=== PATIENT | male | born 1935 | race Caucasian/White ===

== ENCOUNTER 2022-01-16 10:48 | Inpatient (IN) ==
[2022-01-16] MEDS ORDERED: Naloxone 0.4 MG/ML INJ IVP PRN (13:50)
[2022-01-16] MEDS ORDERED: Ondansetron 4 MG/2 ML VIAL IVP PRN (13:50)
[2022-01-16] MEDS ORDERED: *HR* Heparin 5,000 UNIT/ML VIAL SQ SCH (14:00)
[2022-01-16] MEDS: 0.9 % Sodium Chloride 1,000 ML IVC SCH (14:48)
[2022-01-16] MEDS ORDERED: *HR* Heparin 5,000 UNIT/ML VIAL IVP ONE (15:57)
[2022-01-16] MEDS ORDERED: *HR* Heparin 5,000 UNIT/ML VIAL IVP PRN ×2 (15:57)
[2022-01-16 16:13] LABS: Hematocrit 48.1 % (37.5-50.1); Hemoglobin 16.1 g/dL (12.9-16.9); Mean Corpuscular HGB Conc 33.5 g/dL (31.6-35.5); Mean Corpuscular Hemoglobin 29.5 pg (28.0-33.3); Mean Corpuscular Volume 88.3 fL (83.0-100.0); Mean Platelet Volume 8.4 fL (9.4-12.4); Platelet Count 143 K/mcL (140-400); Red Blood Count 5.45 M/mcL (4.19-5.50); Red Cell Distribution Width 12.6 % (11.5-14.5); White Blood Count 11.5 K/mcL (4.3-11.1)
[2022-01-16] MEDS: Heparin 25,000UNIT/250ML 1/2NS 25,000 UNIT/250 ML IV.SOLN IVC SCH (16:30)
[2022-01-16 23:20] LABS: Heparin anti-factor XA UFH 0.68 IU/mL (0.30-0.70); INR 1.4; Prothrombin Time 15.1 Seconds (9.4-12.1)
[2022-01-16 23:47] LABS: Bacteria,Urine Few per hpf (None-Few); Bilirubin,Urine Negative (Negative); Blood,Urine Negative (Negative); Clarity,Urine Turbid (Clear); Color,Urine Yellow (Yellow); Glucose,Urine (UA) Normal (Normal); Ketones,Urine 20 mg/dL (Negative); Leukocyte Esterase,Urine Trace (Negative); Mucus,Urine Few per lpf (None-Few); Nitrite,Urine Positive (Negative); PH,Urine 5.5 pH Units (5.0-8.0); Protein,Urine 30 mg/dL (Neg-Trace); Specific Gravity,Urine 1.027 (1.010-1.025); Squamous Epithelial Cell,Urine Few per hpf (None-Few); Urobilinogen,Urine Normal (Normal)
[2022-01-17] MEDS: 0.9 % Sodium Chloride 1,000 ML IVC SCH (04:09)
[2022-01-17 05:30] LABS: Basophils % 0.5 %; Eosinophils # 0.1 K/mcL (0.0-0.6); Eosinophils % 0.9 %; Hematocrit 40.4 % (37.5-50.1); Immature Granulocytes % 0.3 % (0-4); Lymphocytes % 11.6 %; Mean Corpuscular HGB Conc 34.4 g/dL (31.6-35.5); Mean Corpuscular Hemoglobin 29.7 pg (28.0-33.3); Mean Corpuscular Volume 86.3 fL (83.0-100.0); Mean Platelet Volume 8.7 fL (9.4-12.4); Monocytes # 0.5 K/mcL (0.0-1.3); Monocytes % 5.9 %; Neutrophils # 7.1 K/mcL (1.6-8.9); Platelet Count 138 K/mcL (140-400); Red Blood Count 4.68 M/mcL (4.19-5.50); Red Cell Distribution Width 12.6 % (11.5-14.5); Segmented Neutrophils % 80.8 %; White Blood Count 8.8 K/mcL (4.3-11.1)
[2022-01-17 05:33] LABS: Hemoglobin 13.9 g/dL (12.9-16.9)
[2022-01-17 05:48] LABS: Calcium 8.3 mg/dL (8.6-10.3); Magnesium 1.8 mg/dL (1.6-2.6); Phosphorous 2.8 mg/dL (2.7-4.5); Potassium 3.9 mEq/L (3.5-5.1)
[2022-01-17] MEDS: Carbidopa/Levodopa 25/100 TABLET PO SCH ×2 (14:23→20:08)
[2022-01-17] MEDS: levETIRAcetam 250 MG TABLET PO SCH (16:43)
[2022-01-17] MEDS: Heparin 25,000UNIT/250ML 1/2NS 25,000 UNIT/250 ML IV.SOLN IVC SCH (16:44)
[2022-01-17] MEDS: Latanoprost 2.5 ML BOTTLE LEFT EYE SCH (20:08)
[2022-01-18] MEDS ORDERED: *HR* HYDROmorphone (PF) 1 MG/ML SYRINGE IVP ONE (00:15)
[2022-01-18] MEDS: levETIRAcetam 250 MG TABLET PO SCH ×3 (05:22→17:22)
[2022-01-18] MEDS: Carbidopa/Levodopa 25/100 TABLET PO SCH ×3 (08:43→21:12)
[2022-01-18] MEDS: Cyanocobalamin (B-12) 1,000 MCG TABLET PO SCH (08:43)
[2022-01-18] MEDS: Heparin 25,000UNIT/250ML 1/2NS 25,000 UNIT/250 ML IV.SOLN IVC SCH (17:22)
[2022-01-18] MEDS: Latanoprost 2.5 ML BOTTLE LEFT EYE SCH (21:13)
[2022-01-19] MEDS: levETIRAcetam 250 MG TABLET PO SCH ×2 (05:29→17:23)
[2022-01-19] MEDS: Carbidopa/Levodopa 25/100 TABLET PO SCH ×2 (09:13→15:53)
[2022-01-19] MEDS: Cyanocobalamin (B-12) 1,000 MCG TABLET PO SCH (09:13)
[2022-01-19] MEDS: Heparin 25,000UNIT/250ML 1/2NS 25,000 UNIT/250 ML IV.SOLN IVC SCH (13:13)
[2022-01-19 14:45] VITALS: BP 136/82; PULSE 105; TEMP 97.9; O2SAT 93
== END 2022-01-19 19:12 | disposition home health service (06) | DRG 101 ==
LOC: 3BNU → SUATTDRO 13:13
PROVIDERS: ADMIT Hospitalist; ATTEND Registered Nurse